=== PATIENT | female | born 1995 | race Caucasian/White ===

== ENCOUNTER 2019-04-12 19:44 | Inpatient (IN) ==
[2019-04-12 20:40] LABS: Apearance,Urine CLEAR (Clear); Bilirubin,Urine Negative (Negative); Blood, Urine Negative (Negative); Glucose,Urine (UA) 150 mg/dL (Negative); Ketones,Urine Negative (Negative); Mucus,Urine Many /LPF (Occasional); Nitrite,Urine Negative (Negative); Protein,Urine 30 MG/DL; RBC,Urine <1 /HPF (0-4); Squamous Epithelial Cell,Urine Occasional /HPF (0-10); Urine Color Yellow (Yellow); Urine Specific Gravity 1.024 (1.001-1.035); Urine Urobilinogen < 2.0 EU/DL (0.2-1.0); WBC,Urine 4 /HPF (0-6)
[2019-04-12] MEDS ORDERED: BUTORPHANOL 2 MG/ML VIAL IV PRN (20:48)
[2019-04-12] MEDS ORDERED: ONDANSETRON 4 MG/2 ML VIAL IV PRN (20:48)
[2019-04-12] MEDS ORDERED: MEPERIDINE 50 MG/1 ML VIAL IM PRN (20:48)
[2019-04-12 21:10] LABS: Basophils % 0.3 % (0.0-0.8); Eosinophils # 0.1 10*3/uL (0.0-0.87); Eosinophils % 0.6 % (0.00-10.9); Hematocrit 32.6 VOL% (35.7-47.0); Hemoglobin 10.4 GM/DL (12.0-16.0); Immature Granulocytes % 0.4 %; Immature Granulocytes Absolute 0.04 #; Lymphocytes # 1.6 10*3/uL (1.4-4.0); Lymphocytes % 16.5 % (21.3-54.2); Mean Corpuscular HGB Conc 31.9 GM/DL (32-36); Mean Corpuscular Volume 93.1 FL (87-102); Mean Platelet Volume 10.4 FL (9.6-12.0); Monocytes % 11.3 % (1.7-12.7); Neutrophils % 70.9 % (38.7-73.9); Platelet Count 200 T/CUMM (130-400); Red Cell Distribution Width 14.2 % (9.3-17.3); White Blood Count 9.7 T/CUMM (4-12)
[2019-04-12] MEDS: LACTATED RINGERS 1,000 ML IV SCH (21:39)
[2019-04-13] MEDS ORDERED: MEPERIDINE 25 MG/1 ML VIAL ONE (05:30)
[2019-04-13] MEDS ORDERED: MEPERIDINE 25 MG/1 ML VIAL IV PRN (05:36)
[2019-04-13] MEDS: LACTATED RINGERS 1,000 ML IV SCH (05:42)
[2019-04-13] MEDS ORDERED: OXYTOCIN/LR 20 UNIT/1,000 ML BAG IV SCH (06:30)
[2019-04-13] MEDS ORDERED: CITRIC ACID/SODIUM CITRATE 30 ML UDCUP PO ONE (08:26)
[2019-04-13] MEDS ORDERED: NALOXONE 0.4 MG/ML VIAL IV PRN (08:26)
[2019-04-13] MEDS ORDERED: FAMOTIDINE 20 MG/2 ML VIAL IV ONE (08:26)
[2019-04-13] MEDS ORDERED: LACTATED RINGERS 1,000 ML IV ONE (08:26)
[2019-04-13] MEDS ORDERED: PROMETHAZINE 25 MG/1 ML VIAL IM ONE (08:26)
[2019-04-13] MEDS ORDERED: diphenhydrAMINE 50 MG/1 ML VIAL IV PRN ×2 (08:26)
[2019-04-13] MEDS ORDERED: hydrOXYzine HCL 25 MG/1 ML VIAL IM PRN (08:26)
[2019-04-13] MEDS ORDERED: ePHEDrine 50 MG/ML AMP IV PRN (08:26)
[2019-04-13] MEDS: fentaNYL 2 MCG/ROPIV 0.2% EPID 100 ML EPIDURAL SCH ×2 (10:20→17:53)
[2019-04-13 10:55] LABS: Apearance,Urine CLEAR (Clear); Bacteria,Urine Occasional /HPF (Few); Bilirubin,Urine Negative (Negative); Blood, Urine Small mg/dL (Negative); Glucose,Urine (UA) Negative (Negative); Ketones,Urine 80 mg/dL (Negative); Mucus,Urine Moderate /LPF (Occasional); Nitrite,Urine Negative (Negative); Protein,Urine 30 MG/DL; RBC,Urine 9 /HPF (0-4); Squamous Epithelial Cell,Urine Occasional /HPF (0-10); Urine Color Yellow (Yellow); Urine Specific Gravity 1.017 (1.001-1.035); Urine Urobilinogen < 2.0 EU/DL (0.2-1.0); WBC,Urine 2 /HPF (0-6)
[2019-04-13] MEDS ORDERED: LIDOCAINE 1% 50 ML VIAL ONE (15:17)
[2019-04-13] MEDS ORDERED: METHYLERGONOVINE 0.2 MG/1 ML AMP ONE (15:18)
[2019-04-13] MEDS ORDERED: miSOPROStol 200 MCG TABLET ONE (15:18)
[2019-04-13] MEDS ORDERED: AMPICILLIN INJ 2,000 MG in SODIUM CHLORIDE 0.9% 100 ML IV ONE (18:49)
[2019-04-13 20:21] LABS: Cord Arterial Blood HCO3 28.7 MMOL/L
[2019-04-13] MEDS ORDERED: DIPH/TET/ACEL PERT BOOSTER VACCINE 0.5 ML VIAL IM ONE (20:23)
[2019-04-13] MEDS ORDERED: WITCH HAZEL PADS 100/JAR TOP PRN (20:23)
[2019-04-13] MEDS ORDERED: OXYTOCIN/LR 20 UNIT/1,000 ML BAG IV ONE (20:23)
[2019-04-13] MEDS ORDERED: MEASLES/MUMPS/RUBELLA VACCINE 0.5 ML VIAL SUBCUT ONE (20:23)
[2019-04-13] MEDS ORDERED: ACETAMINOPHEN 325 MG TABLET PO PRN (20:23)
[2019-04-13] MEDS ORDERED: IBUPROFEN 800 MG TABLET PO PRN (20:23)
[2019-04-13] MEDS ORDERED: HYDROCORTISONE 2.5% RECTAL CREAM 30 GM TUBE TOP PRN (20:23)
[2019-04-13] MEDS ORDERED: RHO(D) IMMUNE GLOBULIN 300 MCG SYRINGE IM ONE (20:23)
[2019-04-13] MEDS ORDERED: oxyCODONE/ACETAMINOPHEN 5-325 MG TABLET PO PRN ×2 (20:23)
[2019-04-13] MEDS ORDERED: ONDANSETRON 4 MG/2 ML VIAL IV PRN (20:23)
[2019-04-13] MEDS ORDERED: BISACODYL 10 MG SUPP RECTAL PRN (20:23)
[2019-04-13] MEDS ORDERED: BENZOCAINE 20%/MENTHOL 0.5% SPRAY 56 GM CAN TOP PRN (20:23)
[2019-04-13] MEDS ORDERED: LANOLIN 50% CREAM 0.3 OZ TUBE TOP PRN (20:23)
[2019-04-13 20:24] LABS: Cord Venous Blood HCO3 24.6 MMOL/L; Cord Venous Blood PCO2 46.9 MMHG; Cord Venous Blood PO2 31.1 MMHG
[2019-04-13] MEDS: DOCUSATE SODIUM 100 MG CAPSULE PO SCH (21:41)
[2019-04-14] MEDS: IBUPROFEN 100 MG/5 ML UDCUP PO PRN ×3 (03:15→22:15)
[2019-04-14 05:47] LABS: Basophils % 0.2 % (0.0-0.8); Eosinophils # 0.1 10*3/uL (0.0-0.87); Eosinophils % 0.3 % (0.00-10.9); Hemoglobin 9.6 GM/DL (12.0-16.0); Immature Granulocytes % 0.6 %; Immature Granulocytes Absolute 0.11 #; Lymphocytes # 1.8 10*3/uL (1.4-4.0); Lymphocytes % 9.9 % (21.3-54.2); Mean Corpuscular HGB Conc 33.1 GM/DL (32-36); Mean Corpuscular Volume 91.5 FL (87-102); Mean Platelet Volume 10.3 FL (9.6-12.0); Monocytes % 8.4 % (1.7-12.7); Neutrophils % 80.6 % (38.7-73.9); Platelet Count 191 T/CUMM (130-400); Red Blood Count 3.17 MC/CUMM (3.8-5.5); Red Cell Distribution Width 14.2 % (9.3-17.3); White Blood Count 18.2 T/CUMM (4-12)
[2019-04-14] MEDS: DOCUSATE SODIUM 100 MG CAPSULE PO SCH (09:13)
[2019-04-14] MEDS ORDERED: IBUPROFEN 800 MG TABLET PO PRN (15:40)
[2019-04-14] MEDS: DOCUSATE SODIUM 100 MG/10 ML UDCUP PO SCH (21:05)
[2019-04-15] MEDS: IBUPROFEN 100 MG/5 ML UDCUP PO PRN ×2 (05:14→10:43)
[2019-04-15 07:18] VITALS: BP 150/80
[2019-04-15] MEDS: DOCUSATE SODIUM 100 MG/10 ML UDCUP PO SCH (09:31)
== END 2019-04-15 12:00 | disposition home or self-care (01) | DRG 560 ==
LOC: N.LDOUT 19:44 → N.LD 19:46 → N.OB 04-13 23:35
PROVIDERS: ADMIT Obstetrics & Gynecology; ATTEND Obstetrics & Gynecology